=== PATIENT | female | born 1970 | race Two or more races ===

== ENCOUNTER 2025-04-02 15:36 | Inpatient (IN) | payer OTHER ==
[~2025-04-02] VITALS: Ht 157.5 cm; Wt 93.9 kg
[2025-04-02] MEDS ORDERED: LOSARTAN-HCTZ1 EAC1 PO (15:52)
[2025-04-02] MEDS ORDERED: TOPROL XL50 M1 (15:52)
[2025-04-02] MEDS ORDERED: AMOX-CLAV 875-1 EACH PO (15:53)
[2025-04-02 17:54] LABS: BASO % 0.6 % (0.1-1.2); EOS # 0.54 (0.04-0.54); EOS % 5.2 % (0.7-7.0); LYMPH # 2.36 (1.18-3.74); LYMPH % 22.6 % (19.3-53.1); MEAN PLATELET VOLUME 10.70 fl (9.4-12.4); MONO # 0.64 (0.24-0.82); MONO % 6.1 % (4.7-12.5); NEUT # 6.78 (1.56-6.13); NEUT % 64.8 % (34.0-71.1); RED CELL DISTRIBUTION WIDTH 12.6 % (11.6-14.4)
[2025-04-02 18:15] LABS: ERYTHROCYTE SEDIMENTATION RATE 45 mm/hr (0-30)
[2025-04-02] MEDS ORDERED: CEFTRIAXONE SODIUM 1,000 MG VIAL IM ONE (20:30)
[2025-04-02] MEDS ORDERED: KETOROLAC TROMETHAMINE 30 MG VIAL IM ONE (20:30)
[2025-04-02] MEDS ORDERED: CLOTRIMAZOLE 15 GM TUBE TOP SCH (20:35)
[2025-04-02] MEDS ORDERED: CEFTRIAXONE SODIUM 2,000 MG in 0.9 % SODIUM CHLORIDE 100 ML IV SCH (20:35)
[2025-04-02] MEDS ORDERED: FAMOTIDINE/PF 20 MG in 0.9 % SODIUM CHLORIDE 8 ML IV PUSH SCH (20:36)
[2025-04-02] MEDS ORDERED: ACETAMINOPHEN 500 MG GEL..CAP PO PRN (20:45)
[2025-04-02] MEDS ORDERED: KETOROLAC TROMETHAMINE 30 MG VIAL IV ONE (20:45)
[2025-04-02] MEDS ORDERED: 0.9 % SODIUM CHLORIDE 1,000 ML IV SCH ×2 (20:45)
[2025-04-03] MEDS ORDERED: KETOROLAC TROMETHAMINE 30 MG VIAL ONE (01:00)
[2025-04-03] MEDS ORDERED: FAMOTIDINE/PF 20 MG/2 ML VIAL ONE (01:00)
[2025-04-03] MEDS ORDERED: CEFTRIAXONE SODIUM 2,000 MG VIAL ONE (01:00)
[2025-04-03 01:40] LABS: INR 0.96
[2025-04-03 01:47] LABS: ALT/SGPT 65.0 U/L (12-78); AST/SGOT 28.0 U/L (15-37); BILIRUBIN TOTAL 0.49 mg/dL (0.3-1.2); BUN CREA RATIO 23.0 (7.0-25.0); CREATININE SERUM 0.82 mg/dL (0.55-1.02); GLOBULINA 5.4 G/DL (2.4-3.5); GLUCOSE FASTING 101.0 mg/dL (65-100); OSMOLALITY SERUM 284.0 MOSM/KG (275-295)
[2025-04-03 01:50] LABS: GFR 72.92
[2025-04-03 02:06] LABS: URINE APPEARANCE Clear; URINE BILIRRUBIN Negative (NEGATIVE); URINE BLOOD Negative; URINE COLOR Yellow; URINE GLUCOSE Negative (NEGATIVE); URINE KETONE Negative (NEGATIVE); URINE LEUKOCYTE Negative; URINE NITRATE Negative; URINE PROTEIN Negative (NEGATIVE); URINE UROBILINOGEN 0.2 E.U./dl
[2025-04-03 02:10] LABS: URINE EPITHELIAL CELLS 13.6 uL (0.0-38.8); URINE WBC 2.9 uL (0.0-23.2)
[2025-04-03 02:19] LABS: URINE BACTERIA 0 uL (0.0-1933); URINE CAST 0.14 uL (0.0-1.40); URINE RBC 1.9 uL (0.0-20.8)
[2025-04-03 02:20] VITALS: BP 127/77; O2SAT 99
[2025-04-03 08:48] VITALS: BP 127/83; O2SAT 98
[2025-04-03] MEDS ORDERED: LOSARTAN/HYDROCHLOROTHIAZIDE 1 UDTAB TABLET PO SCH (09:00)
[2025-04-03] MEDS ORDERED: CLOTRIMAZOLE 15 GM TUBE TOP SCH (09:00)
[2025-04-03] MEDS ORDERED: METOPROLOL SUCCINATE 50 MG TAB.SR.24H PO SCH (09:00)
[2025-04-03] MEDS ORDERED: ENOXAPARIN SODIUM 40 MG/0.4 ML SYRINGE SUBCUTANEO SCH (09:00)
[2025-04-03 17:07] VITALS: BP 121/85; O2SAT 100
[2025-04-03] MEDS ORDERED: VANCOMYCIN HCL 5 MG/ML REDILUIDO IV SCH (21:00)
[2025-04-03] MEDS ORDERED: FAMOTIDINE/PF 20 MG in 0.9 % SODIUM CHLORIDE 8 ML IV PUSH SCH (21:00)
[2025-04-04 01:07] VITALS: BP 117/75; O2SAT 97
[2025-04-04 09:20] VITALS: BP 139/82; O2SAT 97
[2025-04-04 17:48] VITALS: BP 139/80
[2025-04-05 01:31] VITALS: BP 145/85; O2SAT 98
[2025-04-05 10:01] VITALS: BP 120/84; O2SAT 96
[2025-04-05 18:51] VITALS: BP 159/65
[2025-04-05] MEDS ORDERED: VANCOMYCIN HCL 5 MG/ML REDILUIDO IV SCH (21:00)
[2025-04-06 00:40] VITALS: BP 137/78; O2SAT 100
[2025-04-06 08:00] VITALS: BP 160/84; O2SAT 97
[2025-04-06 18:53] VITALS: BP 130/78; O2SAT 97
[2025-04-07] VITALS: BP 135/78; O2SAT 98
[2025-04-07 08:00] VITALS: BP 135/84; O2SAT 98
== END 2025-04-07 12:14 | disposition home or self-care (01) | DRG 603 ==
LOC: ER 15:50 → MEDI 20:54 → SURH 04-05 16:48
PROVIDERS: General Practice; Preventive Medicine Public Health & General Preventive Medicine; ADMIT Internal Medicine; ATTEND Internal Medicine
PROC: B54DZZZ Ultrasonography of Bilateral Lower Extremity Veins (ICD-10-PCS; principal; 2025-04-02)
DX: L03.116 Cellulitis of left lower limb (principal)